=== PATIENT | female | born 1960 | race Two or more races ===

== ENCOUNTER → 2016-10-14 | Outpatient (REF) | payer OTHER | LOC: M SFHCLERA 10:09 | PROVIDERS: ATTEND Nurse Practitioner Family | DX: J02.9 Acute pharyngitis, unspecified (principal) ==

== ENCOUNTER → 2016-11-09 | Outpatient (REF) | payer OTHER | LOC: M SFHCLERA 20:13 | PROVIDERS: ATTEND Physician Assistant | DX: R30.0 Dysuria (principal); N39.0 Urinary tract infection, site not specified ==

== ENCOUNTER → 2017-05-31 | Outpatient (REF) | payer OTHER | LOC: M LAB REF 11:27 | PROVIDERS: ATTEND Dermatology | DX: D49.2 Neoplasm of unspecified behavior of bone, soft tissue, and skin (principal) ==

== ENCOUNTER → 2018-02-21 | Outpatient (REF) | payer OTHER ==
[2018-02-21 19:25] LABS: FOLLICLE STIMULATING HORMONE 70.1 mIU/mL
== END ==
LOC: M LAB REF 17:09
DX: N95.0 Postmenopausal bleeding (principal)

== ENCOUNTER → 2018-06-15 | Outpatient (REF) | payer OTHER | LOC: M SFHCLERA 10:05 | DX: L56.8 Other specified acute skin changes due to ultraviolet radiation (principal) ==

== ENCOUNTER → 2018-11-15 | Outpatient (REF) | payer OTHER ==
[2018-11-15 13:25] LABS: INR 0.93; PROTHROMBIN TIME 12.6 SECONDS (12.1-14.4)
[2018-11-15 13:26] LABS: PARTIAL THROMBOPLASTIN TIME 25.6 SECONDS (25.4-37.6)
== END ==
LOC: M LAB REF 11:53
PROVIDERS: ATTEND Nurse Practitioner Family
DX: Z01.812 Encounter for preprocedural laboratory examination (principal); D68.9 Coagulation defect, unspecified

== ENCOUNTER → 2018-12-09 | Outpatient (REF) | payer OTHER | LOC: M SFHCPLAZ 18:22 | PROVIDERS: ATTEND Dermatology | DX: D48.5 Neoplasm of uncertain behavior of skin (principal) ==

== ENCOUNTER → 2019-02-26 | Outpatient (CLI) | payer OTHER ==
--- NOTE | 2019-02-26 09:36 | REP ---
Facial bone series: History: Contusion left eye area . Injury in a fall. Pain and swelling. Findings: Six views of the facial bones show no evidence of mandibular or maxillary fracture. Orbital margins are intact. Nasal bone shows no evidence of fracture. Zygomatic arches appear intact. Impression: No facial fracture seen. Electronically Signed by Binh Sebastian MD 02/26/2019 09:27 A
== END ==
LOC: M WUC 08:30
PROVIDERS: ATTEND Physician Assistant
DX: S00.12XA Contusion of left eyelid and periocular area, initial encounter (principal); X58.XXXA Exposure to other specified factors, initial encounter; Y92.89 Other specified places as the place of occurrence of the external cause

== ENCOUNTER → 2019-03-02 | Outpatient (CLI) | payer OTHER ==
--- NOTE | 2019-03-02 18:34 | REP ---
Head CT without contrast: History: Injury to the eye. Trauma. Injury in a fall. Comparison study: Comparison CT study is from March 14, 2016. CT findings: Bone window settings demonstrate an intact bony calvarium. There is no evidence of skull fracture or incidental bony calvarial lesion. The visualized paranasal sinuses appear clear. No intraorbital abnormality is seen. On soft tissue window setting images; the lateral, third, and fourth ventricles are normal in size and position. Turner-white differentiation pattern is normal above and below the tentorium. There are is no evidence of intracranial hemorrhage. No mass, edema, infarction, or midline shift is seen. No extra-axial fluid collection is appreciated. Impression: Negative noncontrast head CT. Electronically Signed by Binh Sebastian MD 03/02/2019 06:25 P
--- NOTE | 2019-03-02 19:00 | REP ---
Maxillofacial CT study without contrast: History: Injury in a fall. Findings: Bony orbital margins are intact. There is complete opacification of a small right maxillary sinus and partial opacification and mucosal changes in the small left maxillary sinus. Sinus margins are thickened consistent with chronic maxillary sinusitis. No paranasal sinus fracture is seen. Bony orbital margins are intact. Bony nasal septum has an intact appearance. Nasal turbinate soft tissues are unremarkable. No intraconal or extraconal orbital hematoma is seen. No periorbital hematoma is appreciated. Ocular globes are unremarkable on CT. Impression: No maxillofacial fracture seen. Electronically Signed by Binh Sebastian MD 03/02/2019 07:28 P
== END ==
LOC: M RAD 17:00
PROVIDERS: ATTEND Ophthalmology
DX: S09.90XA Unspecified injury of head, initial encounter (principal); W19.XXXA Unspecified fall, initial encounter; Y99.9 Unspecified external cause status; Y93.9 Activity, unspecified; Y92.9 Unspecified place or not applicable; Z91.81 History of falling

== ENCOUNTER → 2019-07-27 | Outpatient (REF) | payer OTHER | LOC: M LAB REF 18:52 | PROVIDERS: ATTEND Dermatology | DX: D49.2 Neoplasm of unspecified behavior of bone, soft tissue, and skin (principal) ==

== ENCOUNTER → 2019-08-01 | Outpatient (CLI) | payer OTHER ==
[~2019-08-01] MED LIST: CONRAY-43 43% 50ML VIAL (Q9960) As Ordered ONE; LIDOCAINE 1% MDV 20ML VIAL As Ordered ONE; TRIAMCINOLONE ACETONIDE SUSP 40 MG/ML VIAL (J3301) As Ordered ONE
--- NOTE | 2019-08-02 17:52 | REP ---
Reason For Exam/Comment: Right hip pain Procedure: Right hip arthrocentesis The procedure was performed by SAMARIA Lomas, under the direct supervision of Dr. Sebastian. The benefits and risks including but not limited to pain, infection, bleeding and anaphylaxis were explained to the patient and informed consent was obtained both verbally and written. Directly prior to the start of the procedure, a formal timeout was completed in the procedure room. The right femoral neck joint space was localized using fluoroscopic guidance. The skin was prepped and draped in the usual sterile fashion. 5 mL of 1% lidocaine 10 mg/ml was used as a local anesthetic. Using fluoroscopic guidance a 22-gauge spinal needle was inserted and advanced to the right femoral neck joint space . 1 mL of Conray 43 was injected to verify needle placement. A 6 mL solution containing a 5 mL 1% lidocaine 10 mg/ml and 1 ml of Kenalog 40 mg/ml was injected into the joint. The needle was removed and hemostasis was achieved. The patient tolerated the procedure well and there were no immediate complications. 0.1 minutes of fluoroscopy time was utilized for this procedure. Some fluoroscopic images are performed with last image hold technology. These images require no additional radiation. Reviewed by SAMARIA Carter 08/01/2019 04:06 P Electronically Signed by Binh Sebastian MD 08/02/2019 05:44 P
== END ==
LOC: M RADPRO 12:04
PROVIDERS: ATTEND Physician Assistant
DX: M25.551 Pain in right hip (principal)
CPT/HCPCS: 20610; 77002; J3301; Q9960

== ENCOUNTER → 2019-09-11 | Outpatient (REF) | payer BC ==
[2019-09-11 18:08] LABS: PLATELET COUNT, AUTOMATED 212 10^3/uL (150-450)
[2019-09-11 18:41] LABS: INR 1.04; PROTHROMBIN TIME 13.3 SECONDS (11.8-14.0)
[2019-09-11 18:42] LABS: PARTIAL THROMBOPLASTIN TIME 26.9 SECONDS (25.0-38.4)
== END ==
LOC: M LABDRAW1 14:33
PROVIDERS: ATTEND Physician Assistant
DX: Z01.812 Encounter for preprocedural laboratory examination (principal); M47.817 Spondylosis without myelopathy or radiculopathy, lumbosacral region

== ENCOUNTER → 2020-01-02 | Outpatient (REF) | payer BC ==
[2020-01-02 13:49] LABS: APPEARANCE, URINE HAZY (CLEAR); BACTERIA, URINE AUTO NEGATIVE (NEGATIVE); BILIRUBIN, URINE AUTO NEGATIVE (NEGATIVE); BLOOD, URINE BLOOD NEGATIVE (NEGATIVE); COLOR, URINE YELLOW (YELLOW); GLUCOSE, URINE (UA) AUTO NEGATIVE (NEGATIVE); KETONE, URINE AUTO 1+ mg/dL (NEGATIVE); LEUKOCYTE ESTERASE, URINE AUTO 1+ (NEGATIVE); NITRITE, URINE AUTO NEGATIVE (NEGATIVE); PROTEIN, URINE AUTO NEGATIVE (NEGATIVE); RBC, URINE AUTO 1 /HPF (0-3); SPECIFIC GRAVITY URINE AUTO 1.015 (1.002-1.035); SQUAMOUS EPITHELIAL CELL UR AU 2 /HPF (0-6); UROBILINOGEN, URINE AUTO 0.2 mg/dL (0.0-2.0); WBC, URINE AUTO 4 /HPF (0-3)
== END ==
LOC: M LAB REF 12:59
PROVIDERS: ATTEND Nurse Practitioner Family
DX: R10.32 Left lower quadrant pain (principal)

== ENCOUNTER 2020-04-03 07:04 | Day surgery (SDC) | payer BC ==
[~2020-04-03] VITALS: Ht 152.4 cm; Wt 66.9 kg
[~2020-04-03 07:04] MED LIST changes: +ATOR1TAB19 PO; +CELE1CAP9 PO; -CONRAY-43 43% 50ML VIAL (Q9960) As Ordered ONE; +D31000TA2 PO; +HAIR1CHW2 PO; +HM P99TA PO; -LIDOCAINE 1% MDV 20ML VIAL As Ordered ONE; +LISI10TA4 PO; +MAGN1CAP PO; +MULTCAP PO; +PROBCAP14 PO; -TRIAMCINOLONE ACETONIDE SUSP 40 MG/ML VIAL (J3301) As Ordered ONE; +VITA-243 PO
[2020-04-03] MEDS ORDERED: LIDOCAINE 2% 100MG/5ML SDV (FOR ANES.) As Ordered ONE (07:22)
[2020-04-03] MEDS ORDERED: propofoL 200 MG/20 ML VIAL As Ordered ONE (07:22)
[2020-04-03] MEDS ORDERED: NS 1,000 ML IV SCH (09:00)
[2020-04-03 09:20] VITALS: BP 112/55
--- NOTE | 2020-04-24 11:35 | ROOR ---
Patient Name: Nancy Hunt Procedure Date: 04/03/2020 7:35 AM Date of : 1960 Age: 59 Room: [facility] Gender: Female Note Status: Hardware Engineering Manager Override Procedure: Colonoscopy Indications: Abdominal pain in the left lower quadrant Providers: DO Ariel Zurita MD: Fidelia FARRELL MD Requesting Provider: Medicines: Propofol per Anesthesia Complications: No immediate complications. Procedure: Pre-Anesthesia Assessment: - Prior to the procedure, a History and Physical was performed, and patient medications and allergies were reviewed. The patient is competent. The risks and benefits of the procedure and the sedation options and risks were discussed with the patient. All questions were answered and informed consent was obtained. Patient identification and proposed procedure were verified by the physician, the collections rep and the nuclear worker technician in the endoscopy suite. Mental Status Examination: alert and oriented. Airway Examination: normal oropharyngeal airway and neck mobility. Respiratory Examination: clear to auscultation. CV Examination: normal. Prophylactic Antibiotics: The patient does not require prophylactic antibiotics. Prior Anticoagulants: The patient has taken no previous anticoagulant or antiplatelet agents. ASA Grade Assessment: II - A patient with mild systemic disease. After reviewing the risks and benefits, the patient was deemed in satisfactory condition to undergo the procedure. The anesthesia plan was to use monitored anesthesia care (MAC). Immediately prior to administration of medications, the patient was re-assessed for adequacy to receive sedatives. The heart rate, respiratory rate, oxygen saturations, blood pressure, adequacy of pulmonary ventilation, and response to care were monitored throughout the procedure. The physical status of the patient was re-assessed after the procedure. The Colonoscope was introduced through the anus and advanced to the cecum, identified by appendiceal orifice and ileocecal valve. The colonoscopy was performed without difficulty. The patient tolerated the procedure well. Findings: Scattered small and large-mouthed diverticula were found in the entire colon. Non-bleeding internal hemorrhoids were found during retroflexion. The hemorrhoids were mild and Grade II (internal hemorrhoids that prolapse but reduce spontaneously). Impression: - Diverticulosis in the entire examined colon. - Non-bleeding internal hemorrhoids. - No specimens collected. Recommendation: - Repeat colonoscopy in 5-10 years for screening purposes. - Return to my office PRN. Deejay Liriano DO 04/03/2020 8:53:36 AM Number of Addenda: 0 Note Initiated On: 04/03/2020 7:35 AM Estimated Blood Loss: Estimated blood loss: none.
== END 2020-04-03 09:24 | disposition home or self-care (01) ==
LOC: M OPP 07:04
PROVIDERS: ATTEND Surgery
DX: K64.1 Second degree hemorrhoids (principal); K57.30 Diverticulosis of large intestine without perforation or abscess without bleeding; R10.32 Left lower quadrant pain; E11.9 Type 2 diabetes mellitus without complications; I10 Essential (primary) hypertension; Z79.899 Other long term (current) drug therapy